=== PATIENT | female | born 1990 | race Caucasian/White ===

== ENCOUNTER 2017-03-03 09:41 | Outpatient (CLI) | payer BC ==
[~2017-03-03] VITALS: Ht 162.6 cm; Wt 112.7 kg
[~2017-03-03 09:41] MED LIST: BIRTH CONTROL; CEPHALEXIN500 M1 PO; FERROUSAL325 MG PO; HEATHER0.35 MG PO; MAXZIDE-25MG TA1 TAB PO; MOTRIN 600600 MG/TAB PO; MULTI VITAMINS1 TAB PO; PERCOCET 325 MG1 TA2 PO; PROTONIX 40MG T40 MG PO; ULTRAM 50MG TAB50 MG PO; ZOFRAN8 MG PO
[2017-03-03] MEDS ORDERED: MULTI VITAMINS1 TAB PO (10:05)
[2017-03-03 10:06] VITALS: BP 125/79; PULSE 107; TEMP 97.4
[2017-03-03] MEDS ORDERED: ASPIRIN 81M81 MG/TA2 PO (10:06)
== END 2017-03-03 13:58 | disposition home or self-care (01) ==
LOC: EUO 09:41
DX: R53.81 Other malaise (principal); R11.0 Nausea
CPT/HCPCS: J2550; J7120

== ENCOUNTER 2017-04-10 10:17 | Outpatient (CLI) | payer BC ==
[2017-04-10] VITALS (9 sets, daily range): BP systolic 119–135; BP diastolic 59–75; PULSE 88–105; TEMP 97.5
[~2017-04-10] VITALS: Ht 162.6 cm; Wt 116.4 kg
[~2017-04-10 10:17] MED LIST changes: +ASPIRIN 81M81 MG/TA2 PO
== END 2017-04-10 14:40 | disposition home or self-care (01) ==
LOC: LDRO 10:17
DX: O62.9 Abnormality of forces of labor, unspecified (principal); Z3A.35 35 weeks gestation of pregnancy
CPT/HCPCS: J3105; J7120

== ENCOUNTER 2020-08-18 11:10 | Inpatient (IN) | payer BC ==
[~2020-08-18] VITALS: Ht 162.6 cm; Wt 110.5 kg
[2020-08-20] MEDS ORDERED: PRENATAL TABLET PO (13:51)
[2020-08-20] MEDS ORDERED: FLONASEALLERGY NS (13:52)
[2020-08-20] MEDS ORDERED: LEXAPRO 10MG10 MG PO (13:53)
[2020-08-20] MEDS ORDERED: FOLIC ACID0.4 MG PO (13:53)
[2020-09-28] VITALS (19 sets, daily range): BP systolic 102–145; BP diastolic 60–83; PULSE 52–86; TEMP 97.5–98
[2020-09-28 06:38] LABS: BASO % 0.3 % (0.0-2.0); EOS # 0.2 (0.0-0.7); EOS % 1.6 % (0-4.0); GRAN # 8.2 (1.4-6.5); GRAN % 75.1 % (42.2-75.2); HEMATOCRIT 35.6 % (37.0-47.0); HEMOGLOBIN 11.6 g/dl (12.5-16.0); MEAN CELL VOLUME 89 fl (80.0-100.0); MEAN CORPUSCULAR HEMOGLOBIN 29 pg (27.0-31.0); MEAN CORPUSCULAR HGB CONC 33 g/dl (33.0-37.0); MEAN PLATELET VOLUME 10.7 fl (7.4-10.4); MONO # 0.4 (0.1-0.6); MONO % 3.9 % (1.7-9.3); PLATELET COUNT 154 K/mm3 (130-400); RED BLOOD COUNT 4.01 M/mm3 (4.10-5.30); REDCELL DISTRIBUTION WIDTH-CV 13.7 % (11.5-14.5)
[2020-09-28] MEDS ORDERED: ZYRTEC 10MG10 MG PO (06:50)
--- NOTE | 2020-09-28 08:25 | NUR ---
0825-Patient to PACU via bed. Report recieved from NANCI Gill. VSS, see recovery record. Patient A&O x4. Denies pain. Abdominal incision with dressing C/D/I. Fundal massage firm. Jashikarri WNL. Will remain with patient per PACU protocol.
[2020-09-29 01:30] VITALS: BP 127/67; PULSE 70; TEMP 97.5
[2020-09-29 05:35] VITALS: BP 128/75; PULSE 85; TEMP 97.9
[2020-09-29 08:16] VITALS: BP 126/76; PULSE 75; TEMP 97.5
[2020-09-29 17:21] VITALS: BP 133/84; PULSE 66; TEMP 97.7
[2020-09-29 20:00] VITALS: BP 126/71; PULSE 67; TEMP 98.1
[2020-09-30] MEDS ORDERED: IBU600 MG PO (08:53)
[2020-09-30] MEDS ORDERED: PERCOCET 325 MG1 TA2 PO (08:53)
== END 2020-09-30 10:05 | disposition home or self-care (01) | DRG 788 ==
LOC: OB
PROVIDERS: ADMIT Obstetrics & Gynecology
PROC: 10D00Z1 Extraction of Products of Conception, Low, Open Approach (ICD-10-PCS; principal; 2020-09-28)
DX: O34.211 Maternal care for low transverse scar from previous cesarean delivery (principal); Z3A.39 39 weeks gestation of pregnancy; Z37.0 Single live birth; F41.9 Anxiety disorder, unspecified; O99.344 Other mental disorders complicating childbirth
CPT/HCPCS: J0690; J1885; J2370; J2405; J2590; J7120

== ENCOUNTER 2020-08-20 12:44 | Outpatient (CLI) | payer BC ==
[~2020-08-20] VITALS: Ht 162.6 cm; Wt 106.8 kg
[2020-08-20 13:30] VITALS: BP 109/60; PULSE 70
--- NOTE | 2020-08-20 13:30 | NUR ---
1255- Pt arrives on unit ambulatory with complains of bright red vaginal bleeding. States that this morning it was enough to drop into toilet but since then she only notices it when she wipes after voiding. Pt denies LOF, UCs or cramping, denies intercourse within the past 24hrs. +FM per Pt. 1300- Pt into bed, EFM and TOCO on and tracing. Assessments completed. 1320- HOB lowered and exam of labia and right inside of vagina, no blood noted. Discussed plan of care, Pt denies questions at this time.
[2020-08-20 13:50] VITALS: BP 112/64; PULSE 70
[2020-08-20] MEDS ORDERED: PRENATAL TABLET PO (13:51)
[2020-08-20] MEDS ORDERED: FLONASEALLERGY NS (13:52)
[2020-08-20] MEDS ORDERED: LEXAPRO 10MG10 MG PO (13:53)
[2020-08-20] MEDS ORDERED: FOLIC ACID0.4 MG PO (13:53)
--- NOTE | 2020-08-20 14:05 | NUR ---
1342- SVE by this RN. Cervix closed, no blood noted on glove. Dr Birch at nurses station. Updated, orders receieved to discharge home, not to work tomorrow 08/21/20. Pt updated, denies questions. 1350- EFM and TOCO off. Pt up to change into street clothes. 1405- Discharge paperwork given and explained. Pt ambulates off unit in stable condition.
== END 2020-08-20 14:05 | disposition home or self-care (01) ==
LOC: LDRO 12:44
DX: O46.93 Antepartum hemorrhage, unspecified, third trimester (principal); Z3A.33 33 weeks gestation of pregnancy

== ENCOUNTER → 2020-09-24 | Outpatient (CLI) | payer BC ==
[~2020-09-24] MED LIST changes: +FLONASEALLERGY NS; +FOLIC ACID0.4 MG PO; +IBU600 MG PO; +LEXAPRO 10MG10 MG PO; +PRENATAL TABLET PO; +ZYRTEC 10MG10 MG PO
== END ==
LOC: COL.LAB
DX: Z20.822 Contact with and (suspected) exposure to COVID-19 (principal)